=== PATIENT | female | born 1985 | race Hispanic/Latino ===

== ENCOUNTER 2022-02-04 04:10 | Emergency (ER) | payer SELFPAY ==
--- NOTE | 2022-02-04 11:11 | Emergency Department Report ---
ED Psych HPI - General Chief Complaint: Medical Clearance Stated Complaint: PSYCH Time Seen by Provider: 02/04/22 10:48 Source: patient, EMS Mode of arrival: Stretcher - History of Present Illness Initial Comments: 36-year-old female traveling from [facility] going to [place] in [place] that was brought in from [place] [employer] [facility] with acute psychosis. Patient reported that she has some psychiatric diagnosis and have not been able to purchase or take medication because she could not avoid it. Patient is observed to be very tangential. Patient could not remember her father's phone number. No fever or chills reported. Patient denied any suicidal or homicidal ideation. No other modifying or associated factors reported. - Related Data Allergies Allergy/AdvReac Type Severity Reaction Status Date / Time No Known Allergies Allergy Verified 02/04/22 10:07 ED Review of Systems ROS: Stated complaint: PSYCH Other details as noted in HPI Comment: All other systems reviewed and negative Psychiatric: other (Acute psychosis) ED Physical Exam - General Limitations: No Limitations General appearance: alert, anxious - Head Head exam: Present: normal inspection - Eye Eye exam: Present: normal appearance Pupils: Present: normal accommodation - ENT ENT exam: Present: normal exam, normal orophraynx, mucous membranes moist - Neck Neck exam: Present: normal inspection, full ROM. Absent: tenderness - Respiratory Respiratory exam: Present: normal lung sounds bilaterally. Absent: respiratory distress, accessory muscle use - Cardiovascular Cardiovascular Exam: Present: regular rate, normal rhythm, normal heart sounds - GI/Abdominal GI/Abdominal exam: Present: soft, normal bowel sounds. Absent: distended, tenderness - Extremities Exam Extremities exam: Present: normal inspection, full ROM, normal capillary refill. Absent: tenderness, pedal edema - Back Exam Back exam: Absent: tenderness - Neurological Exam Neurological exam: Present: alert, oriented X3 - Psychiatric Psychiatric exam: Present: normal affect, anxious, other (Tangential). Absent: homicidal ideation, suicidal ideation - Skin Skin exam: Present: warm, normal color ED Course Vital Signs 02/04/22 04:42 Temperature 98.2 F Pulse Rate 74 Respiratory 16 Rate Blood Pressure 118/71 [Right] O2 Sat by Pulse 99 Oximetry ED Medical Decision Making - Medical Decision Making Here with depression and feeling and suicidal thoughts--differential diagnosis, including but not limited to: Encounter for behavioral health screening examination, encounter for medical screening examination--Due to these will go ahead and other routine labs studies including CBC, CMP and UA with UDS and thyroid profile in anticipation for mental health evaluation. Assessment and plan: here with concern with depressive feeling and likely acute psychosis. --but noted with reassuring vital signs, in no acute distress, who is cooperative, ANO x3, not homicidal but suicidal. He has not demonstrated any witnessed behavior here in the ED that would be consistent with acute decompensated psychosis. I have ordered mental health evaluation. Will go ahead and order typical laboratory studies in anticipation of mental health requests. Critical care attestation.: If time is entered above; I have spent that time in minutes in the direct care of this critically ill patient, excluding procedure time. ED Disposition Clinical Impression: Acute psychosis Disposition: [address] [place] [address] Is pt being admited?: No Does the pt Need Aspirin: No Condition: Stable Additional Instructions: Professional and Agency Contacts To help Resolve Crises (27/12) [place] Crisis Line: Suicide Prevention Line: Crisis Text Line: Text START to 636305 Emergency: 911 Outpatient COMMUNITY Behavioral Health Resources: [facility]: [facility] [address] [place], [place] [address] [facility] [address] [place] [address] Tuesday thru Tuesday - 8am - 5pm Call to schedule an assessment for mental health and substance abuse programs [facility] Address: [address] [place] [address] Tuesday thru Tuesday- 7am-2pm [facility] Address: [address] [place] [address] Tuesday thru Tuesday: 8:30AM-5PM
[2022-02-04 11:21] LABS: Mucus,Urine FEW /HPF
[2022-02-04 11:30] LABS: Amphetamine Screen,Urine Negative; Benzodiazepines Screen,Urine Negative; Cannabinoid Screen,Urine Negative; Cocaine Screen,Urine Negative; Methadone Screen,Urine Negative; Opiate Screen,Urine Negative
--- NOTE | 2022-02-04 11:52 | Consultation ---
History of Present Illness - Reason for Consult Consult date: 02/04/22 Reason for consult: psychosis - History of Present Psychiatric Illness The patient was seen today. She is delusional. Her thoughts are disorganized, with flight of ideas. Her speech is tangential. The patient says she was at the airport [place]. She says "I want to change tickets." The patient then says she came to the hospital because she couldn't sleep. She says she has a history of paranoid schizophrenia. The patient says she's been off her medication. She says "I study oncology and psychology." I ask the patient how long she's been off her medication. She does not directly respond, but states "this place is weird." I ask her again, she says "since my divorce." The patient later says she's not . She then becomes tearful and says "I got a divorce, but we are not . My kids live with my ." The patient finally says she's been off meds since 2017. She says she was admitted into the hospital for a week in 2017 for "her condition." She starts talking about being a muslin. I ask the patient if she was hearing voices or seeing things. She replies "no, I'm just trying to help the people." She is rambling on about nonsensical things. She denies hallucinations of any kind. At the end of the visit, the patient is still talking, then asks, "can I follow you?" PAST PSYCHIATRIC HISTORY: Diagnoses: paranoid schizophrenia Suicide attempts or Self-harm behavior: Denies Prior psychiatric hospitalizations: Yes Substance Abuse history: Denies Previous psychiatric medications tried: Olanzapine Outpatient treatment: Denies PAST MEDICAL HISTORY: unknown Family Psychiatric History: None reported or documented SOCIAL HISTORY Marital Status: Living Arrangements: with spouse in [place] Employment Status: Education: History of Abuse:denies Legal History: Denies REVIEW OF SYSTEMS Constitutional: Negative for weight loss ENT: Negative for stridor Respiratory: Negative for cough or hemoptysis All other systems reviewed and are negative MENTAL STATUS EXAMINATION General Appearance and Behavior: Age appropriate, good hygiene, wearing appropriate clothes. polite, cooperative, odd Cooperation: Cooperative Psychomotor Behavior: Psychomotor normal Mood: okay Affect and affective range: Congruent with stated mood,tearful Thought Process: Illogical, disorganized, flight of ideas Thought Content: delusions Speech: Nonsensical Suicidal Ideation: Yes Homicidal Ideation: Denies Hallucinations: Denies Delusions: Yes Impulse Control: Limited Insight and Judgment: Poor insight and fair judgment Memory: Limited Attention: distracted Orientation: a/o x 3 Assessment (1) Schizophrenia Treatment Plan 1013 Start Olanzapine 7.5mg po daily Start Trazodone 50mg po qhs Medical: per primary Sitter: Defer to primary Disposition: Recommend acute psychiatric inpatient treatment Will follow. Thanks Case staffed with Dr. Peters Medications and Allergies Allergies Allergy/AdvReac Type Severity Reaction Status Date / Time No Known Allergies Allergy Verified 02/04/22 10:07 Mental Status Exam - Vital signs Last Vital Signs Temp 98.2 F 02/04/22 04:42 Pulse 74 02/04/22 04:42 Resp 16 02/04/22 04:42 BP 118/71 02/04/22 04:42 Pulse Ox 99 02/04/22 04:42 Results Abnormal lab results 02/04/22 Range/Units 10:33 Urine WBC (Auto) 11.0 H (0.0-6.0) /HPF All other labs normal.
[2022-02-04 14:19] LABS: Basophils # (Auto) 0.1 K/mm3 (0.0-0.1); Basophils % (Auto) 1.8 % (0.0-1.8); Eosinophils # (Auto) 0.1 K/mm3 (0.0-0.4); Eosinophils % (Auto) 1.7 % (0.0-4.3); Hematocrit 39.2 % (30.3-42.9); Hemoglobin 13.2 gm/dl (10.1-14.3); Lymphocytes # (Auto) 1.6 K/mm3 (1.2-5.4); Lymphocytes % (Auto) 27.1 % (13.4-35.0); Mean Corpuscular HGB Conc 34 % (30-34); Mean Corpuscular Volume 93 fl (79-97); Monocytes # (Auto) 0.5 K/mm3 (0.0-0.8); Monocytes % (Auto) 9.2 % (0.0-7.3); Platelet Count 339 K/mm3 (140-440); Red Blood Count 4.22 M/mm3 (3.65-5.03); Red Cell Distribution Width 13.2 % (13.2-15.2)
[2022-02-04 14:40] LABS: Alanine Aminotransferase 29 units/L (7-56); Albumin 5.2 g/dL (3.9-5); Blood Urea Nitrogen 9 mg/dL (7-17); Calcium 9.9 mg/dL (8.4-10.2); Hemolysis Index 10
[2022-02-04 14:41] LABS: BUN/Creatinine Ratio 18
[2022-02-04 14:49] LABS: Free T4 (Free Thyroxine) 1.41 ng/dL (0.76-1.46)
[2022-02-04] MEDS ORDERED: traZODone 50 MG TAB PO SCH (22:00)
[2022-02-05 07:46] VITALS: BP 120/78
--- NOTE | 2022-02-05 08:22 | Event Note ---
Date: 02/05/22 Pt seen this morning and denies any new symptoms. She is admitted to the ED with acute psychosis and as been accepted for inpatient at [facility] psychiatry facility as recommended by psychiatry that saw her yesterday. Pt continue to denies any SI or HI. No other modifying or associated factors.
== END 2022-02-05 08:57 ==
LOC: ED 04:10
DX: F29 Unspecified psychosis not due to a substance or known physiological condition (principal); Z20.822 Contact with and (suspected) exposure to COVID-19; Z79.899 Other long term (current) drug therapy
CPT/HCPCS: 36415; 80053; 80307; 81001; 84439; 84443; 85025; 87086; 99285; U0003; 80320; G0480